=== PATIENT | female | born 1955 | race African-American/Black ===

== ENCOUNTER 2024-01-08 04:16 | Day surgery (SDC) | payer BC, OTHER ==
[2024-01-08 07:09] VITALS: BMI 40.3
[2024-01-08 07:25] VITALS: PULSE 60; RESP 20; TEMP 97.5
[2024-01-08 07:58] VITALS: BP 180/98
== END 2024-01-08 09:09 | disposition home or self-care (01) ==
LOC: JASU-SURG 04:16
PROVIDERS: ATTEND Podiatrist Foot & Ankle Surgery
DX: Z53.8 Procedure and treatment not carried out for other reasons (principal)
CPT/HCPCS: 93005; 93010

== ENCOUNTER 2024-02-26 06:18 | Day surgery (SDC) | payer BC, OTHER, MEDICARE ==
[2024-02-18 11:44] VITALS: BMI 41.3
[2024-02-26] MEDS ORDERED: BUPIVACAINE HCL/PF 0.5% (5MG/ML) 10 ML VIAL ONE ×2 (07:38→09:45)
[2024-02-26] MEDS ORDERED: LIDOCAINE HCL 1%, 10 MG/ML (20ML VIAL) ONE (07:38)
[2024-02-26] MEDS ORDERED: MIDAZOLAM HCL 2 MG/2 ML SINGLE DOSE VIAL ONE (07:41)
[2024-02-26] MEDS ORDERED: PROPOFOL 40 ML ONE (07:41)
[2024-02-26] MEDS ORDERED: SUCCINYLCHOLINE CHLORIDE 200 MG/10 ML SYRINGE ONE (07:41)
[2024-02-26] MEDS: BUPIVACAINE HCL/PF 0.5% (5MG/ML) 10 ML VIAL IJ ONE ×2 (08:06→10:01)
[2024-02-26] MEDS: LIDOCAINE HCL 1%, 10 MG/ML (20ML VIAL) NR ONE (08:06)
[2024-02-26] MEDS ORDERED: PROPOFOL 20 ML ONE (08:16)
[2024-02-26] MEDS ORDERED: BACITRACIN ZINC 15 GM TUBE TOPICAL OINTMENT ONE (10:18)
[2024-02-26 10:54] VITALS: TEMP 97
[2024-02-26 12:28] VITALS: RESP 20
[2024-02-26] MEDS ORDERED: oxyCODONE HCL 5 MG TABLET PO PRN (12:42)
[2024-02-26] MEDS: oxyCODONE HCL 5 MG TABLET PO PRN (12:45)
[2024-02-26 14:27] VITALS: BP 150/68; PULSE 54
== END 2024-02-26 13:10 | disposition home or self-care (01) ==
LOC: FASU 06:18
PROVIDERS: ATTEND Podiatrist Foot & Ankle Surgery
PROC: 0SGN04Z Fusion of Left Metatarsal-Phalangeal Joint with Internal Fixation Device, Open Approach (ICD-10-PCS; principal; 2024-02-26 08:19)
DX: M21.612 Bunion of left foot (principal); M20.22 Hallux rigidus, left foot; M20.42 Other hammer toe(s) (acquired), left foot; S93.125A Dislocation of metatarsophalangeal joint of left lesser toe(s), initial encounter; X58.XXXA Exposure to other specified factors, initial encounter; Y92.9 Unspecified place or not applicable; Y93.9 Activity, unspecified
CPT/HCPCS: 28285; 28308; 28750; C1713; 73630-TC-LT; 88305-TC; 88311-TC; 94760; C1889

== ENCOUNTER 2024-02-27 13:33 | Emergency (ER) | payer BC, OTHER, MEDICARE ==
[2024-02-27 13:41] VITALS: BP 125/63; PULSE 66; RESP 18; TEMP 98.4; BMI 41.3
[2024-02-27] MEDS ORDERED: oxyCODONE HCL 5 MG TABLET ONE (14:10)
[2024-02-27] MEDS: oxyCODONE HCL 5 MG TABLET PO ONE (14:14)
== END 2024-02-27 15:05 | disposition home or self-care (01) ==
LOC: SUPCPDRO 13:33 → FER 13:33
DX: M96.830 Postprocedural hemorrhage of a musculoskeletal structure following a musculoskeletal system procedure (principal)
CPT/HCPCS: 99283-25